=== PATIENT | male | born 1975 | race African-American/Black ===

== ENCOUNTER 2017-03-17 13:40 | Emergency (ER) | payer MEDICARE, OTHER ==
[~2017-03-17] VITALS: Ht 152.4 cm; Wt 63.5 kg
[~2017-03-17 13:40] MED LIST: Z.0.NO CURRENT MEDS
[2017-03-17 13:41] VITALS: BP 121/76; PULSE 92; RESP 18; TEMP 99.6; O2SAT 100
[2017-03-17] MEDS ORDERED: LIDOCAINE HCL 1% 20 ML VIAL INFIL ONE (15:15)
[2017-03-17] MEDS ORDERED: BACT800T5 PO (15:40)
[2017-03-17] MEDS ORDERED: DICL75TA PO (15:40)
--- NOTE | 2017-03-17 15:44 | PD ---
HPI Chief Complaint: Oral / Dental Pain or Problem Time Seen by Provider: 15:12 Travel History International Travel<30 days: No Contact w/Intl Traveler<30days: No Traveled to known affect area: No History of Present Illness HPI 41-year-old male that presents to the ED for evaluation of possible abscess to his right face. Patient reports having this since Wednesday. Per patient is becoming more painful. It measures related to his bad teeth on inside his mouth or related to something else. He complains of pain that is 6 out of 10 in the area. Denies any fevers chills or sweats. No history of immunosuppression. No injury that he can remember. Pain only with touch and with chewing. No allergies to medication. No other medical issues. Has not seen anybody for this. Not taking anything for this. PFSH Social History Alcohol Use: No Tobacco Use: No Substance Use: No Allergies-Medications (Allergen,Severity, Reaction): Coded Allergies: No Known Allergies (Verified , 10/10/09) Reported Meds & Prescriptions Reported Meds & Active Scripts Active Bactrim DS (Sulfamethoxazole-Trimethoprim) 800-160 Mg Tab 1 Tab PO BID [address] (Diclofenac Sodium) 75 Mg Tabdr 75 Mg PO BID PRN Reported No Current Meds (Miscellaneous Medication) Misc Review of Systems Except as stated in HPI: all other systems reviewed are Neg Physical Exam Narrative GENERAL: SKIN: Warm and dry. Patient has a purulent about 2 cm in diameter abscess to the right side of the cheek. Patient has purulence noted. Very tender to touch. Dentition appears to be bad inside the mouth but no sign of internal abscess in the mouth. HEAD: Atraumatic. Normocephalic. EYES: Pupils equal and round. No scleral icterus. No injection or drainage. ENT: No nasal bleeding or discharge. Mucous membranes pink and moist. NECK: Trachea midline. No JVD. CARDIOVASCULAR: Regular rate and rhythm. RESPIRATORY: No accessory muscle use. Clear to auscultation. Breath sounds equal bilaterally. GASTROINTESTINAL: Abdomen soft, non-tender, nondistended. Hepatic and splenic margins not palpable. MUSCULOSKELETAL: Extremities without clubbing, cyanosis, or edema. No obvious deformities. NEUROLOGICAL: Awake and alert. No obvious cranial nerve deficits. Motor grossly within normal limits. Five out of 5 muscle strength in the arms and legs. Normal speech. PSYCHIATRIC: Appropriate mood and affect; insight and judgment normal. Data Data Last Documented VS Vital Signs Date Time Temp Pulse Resp B/P (MAP) Pulse Ox O2 Delivery O2 Flow Rate FiO2 03/17/17 13:41 99.6 92 18 121/76 (91) 100 Room Air Orders Orders Lidocaine 1% Inj (Xylocaine 1% Inj) (03/17/17 15:15) Ed Discharge Order (03/17/17 15:40) MDM Medical Decision Making Medical Screen Exam Complete: Yes Emergency Medical Condition: Yes Medical Record Reviewed: Yes Differential Diagnosis Dental abscess versus dentalgia versus dental infection Narrative Course 41-year-old male that presents to the ED for evaluation of possible abscess. Patient was properly examined and was found to have signs and symptoms consistent with skin abscess. Abscess appears to be superficial to the cheek and not inside the gum. I recommended incision and drainage. Patient agrees with this. Please refer to my procedure note. Patient was given a prescription for Bactrim and diclofenac sodium. Culture was taken. Follow with PCP. See ED worsening symptoms. Procedures Procedure Narrative After the risks and benefits were discussed the following procedure was performed: INCISION AND DRAINAGE OF ABSCESS: The area was prepped and was sterilely draped. A subcutaneous wheal of 1 % Xylocaine with a total number 5 mL was used to anesthetize the area. The area was properly anesthetized. A number 11 scalpel was used to make a 1 -cm incision across the area of the abscess. Cultures were obtained. The abscess was drained an irrigated with normal saline. Quarter inch iodoform packing was placed in the wound. Sterile dressing applied. Patient advised to have packing removed in two days. Diagnosis Primary Impression: Abscess Patient Instructions: General Instructions Additional Instructions: Take medication as prescribed. Follow with PCP. See ED worsening symptoms. Ice or warm compresses. Chest dressing daily. Med/Other Pt SpecificInfo: Prescription(s) given, Wound Care Scripts Sulfamethoxazole-Trimethoprim (Bactrim DS) 800-160 Mg Tab 1 TAB PO BID for Infection for 10 Days, #20 TAB 0 Refills Prov: Horacio Jaramillo MD 03/17/[address] (Diclofenac Sodium DR) 75 Mg Tabdr 75 MG PO BID Y for PAIN SCALE 1 TO 10, #20 TAB 0 Refills Prov: Horacio Jaramillo MD 03/17/17 Disposition: 01 DISCHARGE HOME Condition: Stable Boo Ordoñez Mar 17, 2017 15:44
== END 2017-03-17 16:05 | disposition home or self-care (01) ==
LOC: NEPK 13:40
DX: L02.01 Cutaneous abscess of face (principal)
CPT/HCPCS: 10061; 87070; 87205